=== PATIENT | female | born 1945 | race Native Hawaiian/Other Pacific Islander ===

== ENCOUNTER 2020-05-30 17:06 | Outpatient (CLI) | payer OTHER ==
[2020-05-30 18:00] LABS: PLATELET COUNT 250 K/uL (152-353)
== END 2020-05-30 20:01 | disposition home or self-care (01) ==
LOC: LAB 17:06
PROVIDERS: ATTEND Nurse Practitioner Family
DX: Z00.00 Encounter for general adult medical examination without abnormal findings (principal); R53.83 Other fatigue; R53.81 Other malaise; D64.9 Anemia, unspecified; E53.9 Vitamin B deficiency, unspecified; E55.9 Vitamin D deficiency, unspecified; M19.90 Unspecified osteoarthritis, unspecified site
CPT/HCPCS: 82306; 82607; 82728; 85027

== ENCOUNTER 2020-07-12 17:34 | Outpatient (CLI) | payer OTHER | END 2020-07-12 20:12 | disposition home or self-care (01) | LOC: LAB 17:34 | PROVIDERS: ATTEND Nurse Practitioner Family | DX: R30.0 Dysuria (principal); N39.0 Urinary tract infection, site not specified | CPT/HCPCS: 81002; 87077; 87086; 87088; 87185 ==